=== PATIENT | female | born 2005 | race Caucasian/White ===

== ENCOUNTER 2025-04-08 22:11 | Emergency (ER) | payer OTHER ==
[2025-04-09 00:22] LABS: Absolute Lymphocytes (CBC) 1.1 K/uL (0.7-4.9); Hematocrit 37.2 % (36.0-45.0); Hemoglobin 13.0 g/dL (12.0-15.0); MCH 31.3 pg (27.0-35.0); MCHC 34.9 g/dL (32.0-36.0); MCV 89.9 fL (80-100); MPV 8.8 fL (7.6-11.3); Nucleated RBC Absolute Count 0.0 (0-0); Nucleated Red Blood Cells % 0.1 % (0-0); RBC Red Blood Cell Count 4.14 M/uL (3.86-4.86); White Blood Count 6.70 thou/uL (4.3-10.9)
[2025-04-09 00:30] LABS: Influenza A Ag Negative; Influenza B Ag Negative; SARS-CoV-2 Antigen Rapid Res Negative (Negative)
[2025-04-09 00:43] LABS: ALT/SGPT 17 U/L (13-56); Albumin 3.8 g/dL (3.4-5.0); Albumin/Globulin Ratio 0.9 (1.1-1.8); Alkaline Phosphatase 56 U/L (45-117); Anion Gap 9.4 mEq/L (5.0-15.0); BUN Blood Urea Nitrogen 12 mg/dL (7-18); Bilirubin Indirect, Calculated 0.4 mg/dL (0.2-0.8); Globulin 4.3 g/dL (2.3-3.5); Glucose Level 104 mg/dL (74-106); Magnesium 2.3 mg/dL (1.6-2.4); Potassium 3.4 mEq/L (3.5-5.1)
[2025-04-09 00:45] LABS: AST/SGOT < 10 U/L (15-37); Thyroid Stimulating Hormone 56.800 uIU/mL (0.358-3.740); Troponin High Sensitivity < 3.0 pg/mL (<58.9)
[2025-04-09 00:45] LABS: METHAMPHETAM NEGATIVE (NEGATIVE); THC Cannibis NEGATIVE (NEGATIVE)
[2025-04-09] MEDS ORDERED: NA CHLORIDE 0.9% 1,000 ML ONE (01:33)
--- NOTE | 2025-04-09 01:59 | EDPHYS ---
Physician Documentation [facility] Name: Darlene Light Age: 19 yrs Sex: Female : 2005 Arrival Date: 04/08/2025 Time: 22:11 Bed 8 Private MD: ED Physician Shadi Leone HPI: 04/08 23:40 This 19 yrs old Female presents to ER via Ambulatory with complaints of Weakness, kb Dizziness. 23:42 Patient is a 19-year-old female presents for body aches, chills, headache, weakness, kb dizziness and palpitations for 3 days. Mother states this has happened several times over the past few years. Has been seen by neurology, EEG completed and normal.. PATIENT FINANCIAL SERVICES SPECIALIST: 22:31 LMP 04/05/2025, unknown jb4 Historical: - Allergies: 22:31 No Known Allergies; jb4 - PMHx: 22:31 Hypothyroidism; jb4 - PSHx: 22:31 None; jb4 - Immunization history:: Adult Immunizations up to date. - Infectious Disease History:: Denies. - Social history:: Smoking status: Patient denies any tobacco usage or history of. ROS: 23:42 Constitutional: As per HPI kb Exam: 23:42 Constitutional: This is a well developed, well nourished patient who is awake, alert, kb and in no acute distress. Head/Face: Normocephalic, atraumatic. ENT: Moist Mucous membranes Cardiovascular: Regular rate Respiratory: Respirations even and unlabored. No increased work of breathing. Talking in full sentences Abdomen/GI: Soft, non-tender. No distention Skin: Warm, dry with normal turgor. Normal color. MS/ Extremity: Pulses equal, no cyanosis. Neurovascular intact. Full, normal range of motion. Neuro: Awake and alert, GCS 15, oriented to person, place, time, and situation. 04/09 00:41 ECG was reviewed by the Attending Physician. kb Vital Signs: 04/08 22:29 BP 129 / 83; Pulse 83; Resp 16; Temp 98.7(O); Pulse Ox 100% on R/A; jb4 04/09 00:14 BP 118 / 79; Pulse 77; Resp 18; Pulse Ox 99% on R/A; kd3 02:30 BP 132 / 88 Supine; Pulse 83; Resp 18; Pulse Ox 100% on R/A; kd3 02:40 BP 127 / 80 Sitting; Pulse 78; Resp 17; Pulse Ox 100% on R/A; kd3 02:40 BP 130 / 97 Standing; Pulse 81; Resp 16; Pulse Ox 100% ; kd3 MDM: 04/08 22:15 Medical Screening Exam initiated kb 23:42 Data reviewed: vital signs, nurses notes. Historians other than the Patient: Parent: krystin mother. 04/09 01:57 Differential Diagnosis dehydration, hypothyroidism, generalized weakness. Counseling: I krystin had a detailed discussion with the patient and/or guardian regarding the historical points, exam findings, and any diagnostic results supporting the discharge/admit diagnosis, lab results, radiology results, the need for outpatient follow up, a family practitioner, to return to the emergency department if symptoms worsen or persist or if there are any questions or concerns that arise at home. 04/08 22:34 Order name: Basic Metabolic Panel; Complete Time: 01:02 kb 04/08 22:34 Order name: CBC with Diff; Complete Time: 00:35 kb 04/08 22:34 Order name: Hepatic Function; Complete Time: 01:02 kb 04/08 22:34 Order name: Magnesium; Complete Time: 01:02 kb 04/08 22:34 Order name: Test, Urine; Complete Time: 01:02 kb 04/08 22:34 Order name: Troponin High Sensitivity; Complete Time: 01:02 kb 04/08 22:34 Order name: UDS; Complete Time: 01:02 kb 04/08 22:34 Order name: TSH; Complete Time: 01:02 kb 04/08 22:34 Order name: COVID-19 Ag + Flu A+B Ag; Complete Time: 00:35 kb 04/08 22:34 Order name: Group A Streptococcus Rapid; Complete Time: 00:35 kb 04/08 22:34 Order name: [place] Screen Profile; Complete Time: 01:05 kb 04/09 00:24 Order name: Throat Culture EDMS 04/09 00:48 Order name: T4 Free; Complete Time: 01:02 EDMS 04/08 22:34 Order name: Chest Single View XRAY kb 04/08 22:34 Order name: EKG; Complete Time: 22:34 kb 04/08 22:34 Order name: Cardiac monitoring; Complete Time: 00:12 kb 04/0834 Order name: EKG - Nurse/Tech; Complete Time: 00:12 kb 04/08 Order name: IV Saline Lock; Complete Time: 00:12 kb 04/08 Order name: Labs collected and sent; Complete Time: 00:12 kb 04/08 Order name: NPO; Complete Time: 00:11 kb 04/08 Order name: O2 Per Protocol; Complete Time: 00:11 kb 04/08 Order name: O2 Sat Monitoring; Complete Time: 00:11 kb 04/08 Order name: Orthostatics; Complete Time: 02:51 kb EC:41 Rate is 61 beats/min. Rhythm is regular. QRS [place] is Normal. NM interval is normal at kb 144 msec. QRS interval is normal at 82 msec. QT interval is normal at 400 msec. Administered Medications: 02:09 Drug: NS 0.9% IV 1000 ml IV at 1000 ml once; to be given as a bolus over 60 minutes kd3 Route: IV; Rate: 1000 ml; Site: left antecubital; 02:52 Follow up: IV Status: Completed infusion kd3 Disposition: 02:36 Co-signature as Attending Physician, Shadi Leone MD I agree with the assessment sp4 and plan of care. I reviewed the patient's care provided by Advanced Practice Provider \T\ agree w/ the diagnosis \T\ care plan. I personally saw the pt \T\ performed a substantive portion of the visit, incldng all aspects of the (History/Exam/Medical Decision Making). Disposition Summary: 04/09/25 01:59 Discharge Ordered Notes: Location: Home kb Condition: Stable kb Diagnosis - Hypothyroidism, unspecified kb - Weakness kb Followup: kb - With: Emergency Department - When: As needed - Reason: Worsening of condition Followup: kb - With: Private Physician - When: 2 - 3 days - Reason: Recheck today's complaints, Continuance of care, Re-evaluation by your physician Discharge Instructions: - Discharge Summary Sheet kb - Hypothyroidism kb - Weakness, [id number] kb Forms: - Medication Reconciliation Form kb - Antibiotic Education kb - Prescription Opioid Use kb - Patient Portal Instructions kb - Leadership Thank You Letter kb - Work release form jj7 Signatures: Dispatcher [employer] EDMS Elana Stewart, RESEARCH ASSOCIATE MOLECULAR BIOLOGY-C RESEARCH ASSOCIATE MOLECULAR BIOLOGY-Ckb Bk Rust, RN RN jb4 Mary Millan, RN RN kd3 Shadi Leone MD MD sp4 Corrections: (The following items were deleted from the chart) 04/08 22:34 22:34 BASIC METABOLIC PANEL+C.LAB.BRZ ordered. EDMS EDMS 22:34 22:34 CBC+H.LAB.BRZ ordered. EDMS EDMS 22:34 22:34 HEPATIC FUNCTION+C.LAB.BRZ ordered. EDMS EDMS 22:34 22:34 MAGNESIUM+C.LAB.BRZ ordered. EDMS EDMS 22:34 22:34 Test, Urine+UC.LAB.BRZ ordered. EDMS EDMS 22:34 22:34 Troponin High Sensitivity+C.LAB.BRZ ordered. EDMS EDMS 22:34 22:34 URINE DRUG SCREEN+UC.LAB.BRZ ordered. EDMS EDMS 22:34 22:34 THYROID STIMULAT HORMONE+C.LAB.BRZ ordered. EDMS EDMS 22:34 22:34 COVID-19 Ag + Flu A+B Ag+I.LAB.BRZ ordered. EDMS EDMS 22:34 22:34 Group A Streptococcus Rapid Sc+I.LAB.BRZ ordered. EDMS EDMS 22:34 22:34 MONO SCREEN PROFILE+I.LAB.BRZ ordered. EDMS EDMS
--- NOTE | 2025-04-09 01:59 | ER ---
Nurse's Notes [facility] Name: Darlene Light Age: 19 yrs Sex: Female : 2005 Arrival Date: 04/08/2025 Time: 22:11 Bed 8 Private MD: Diagnosis: Hypothyroidism, unspecified;Weakness Presentation: 04/08 22:29 Chief complaint: Chief complaint: Parent and/or Guardian states: Since Tuesday she had jb4 body aches, chills, headache, weakness and dizziness. Coronavirus screen: At this time, the client does not indicate any symptoms associated with coronavirus-19. Ebola Screen: No symptoms or risks identified at this time. Initial Sepsis Screen: Does the patient meet any 2 criteria? No. Patient's initial sepsis screen is negative. Does the patient have a suspected source of infection? No. Patient's initial sepsis screen is negative. Risk Assessment: Do you want to hurt yourself or someone else? Patient reports no desire to harm self or others. Onset of symptoms was April 08, 2025. Transition of care: patient was not received from another setting of care. 22:29 Method Of Arrival: Ambulatory jb4 22:29 Acuity: EMMANUEL 3 jb4 Triage Assessment: 04/09 00:13 General: Appears in no apparent distress. Behavior is calm, cooperative. Pain: Denies kd3 pain. DIRECT MARKETING SPECIALIST: 04/08 22:31 LMP 04/05/2025, unknown jb4 Historical: - Allergies: 22:31 No Known Allergies; jb4 - PMHx: 22:31 Hypothyroidism; jb4 - PSHx: 22:31 None; jb4 - Immunization history:: Adult Immunizations up to date. - Infectious Disease History:: Denies. - Social history:: Smoking status: Patient denies any tobacco usage or history of. Screenin/21 00:12 [facility] ED Fall Risk Assessment (Adult) History of falling in the last 3 months, kd3 including since admission No falls in past 3 months (0 pts) Confusion or Disorientation No (0 pts) Intoxicated or Sedated No (0 pts) Impaired Gait No (0 pts) Mobility Assist Device Used No (0 pt) Altered Elimination No (0 pt) Score/Fall Risk Level 0 - 2 = Low Risk Maintained a safe environment. Abuse screen: Denies threats or abuse. Denies injuries from another. Nutritional screening: No deficits noted. Tuberculosis screening: No symptoms or risk factors identified. Assessment: 00:13 General: Appears in no apparent distress. Behavior is calm, cooperative. Neuro: Level kd3 of Consciousness is awake, alert, obeys commands, Oriented to person, place, time, situation. Cardiovascular: Capillary refill < 3 seconds Patient's skin is warm and dry. Respiratory: Airway is patent Trachea midline Respiratory effort is even, unlabored, Respiratory pattern is regular, symmetrical. GI: No signs and/or symptoms were reported involving the gastrointestinal system. : No signs and/or symptoms were reported regarding the genitourinary system. 01:00 Reassessment: Patient and/or family updated on plan of care and expected duration. Pain kd3 level reassessed. Patient is alert, oriented x 3, equal unlabored respirations, skin warm/dry/pink. 02:00 Reassessment: Patient and/or family updated on plan of care and expected duration. Pain kd3 level reassessed. Patient is alert, oriented x 3, equal unlabored respirations, skin warm/dry/pink. 02:53 General: Appears in no apparent distress. Behavior is calm, cooperative. Neuro: Level kd3 of Consciousness is awake, alert, obeys commands, Oriented to person, place, time, situation. Cardiovascular: Capillary refill < 3 seconds Patient's skin is warm and dry. Respiratory: Airway is patent Trachea midline Respiratory effort is even, unlabored, Respiratory pattern is regular, symmetrical. Vital Signs: 04/08 22:29 BP 129 / 83; Pulse 83; Resp 16; Temp 98.7(O); Pulse Ox 100% on R/A; jb4 04/09 00:14 BP 118 / 79; Pulse 77; Resp 18; Pulse Ox 99% on R/A; kd3 02:30 BP 132 / 88 Supine; Pulse 83; Resp 18; Pulse Ox 100% on R/A; kd3 02:40 BP 127 / 80 Sitting; Pulse 78; Resp 17; Pulse Ox 100% on R/A; kd3 02:40 BP 130 / 97 Standing; Pulse 81; Resp 16; Pulse Ox 100% ; kd3 ED Course: 04/08 22:13 Patient arrived in ED. mr 22:15 Elana Stewart FNP-C is PHCP. kb 22:15 Shadi Leone MD is Attending Physician. kb 22:31 Triage completed. jb4 22:31 Arm band placed on right wrist. jb4 23:45 Mary Millan, RN is Primary Nurse. kd3 04/09 00:00 Inserted saline lock: 20 gauge in left antecubital area, using aseptic technique. Blood kd3 collected. Flushed with 10 mL NS. 00:00 No provider procedures requiring assistance completed. kd3 00:11 Troponin High Sensitivity Sent. kd3 00:11 Test, Urine Sent. kd3 00:11 Magnesium Sent. kd3 00:11 Hepatic Function Sent. kd3 00:11 CBC with Diff Sent. kd3 00:11 Basic Metabolic Panel Sent. kd3 00:12 UDS Sent. kd3 00:12 TSH Sent. kd3 00:12 Group A Streptococcus Rapid Sent. kd3 00:12 COVID-19 Ag + Flu A+B Ag Sent. kd3 00:12 [place] Screen Profile Sent. kd3 00:13 Patient has correct armband on for positive identification. Provided Education on: kd3 blood work and EKG . 00:42 Chest Single View XRAY In Process Unspecified. EDMS 02:54 IV discontinued, intact, bleeding controlled, No redness/swelling at site. Pressure kd3 dressing applied. Administered Medications: 02:09 Drug: NS 0.9% IV 1000 ml IV at 1000 ml once; to be given as a bolus over 60 minutes kd3 Route: IV; Rate: 1000 ml; Site: left antecubital; 02:52 Follow up: IV Status: Completed infusion kd3 Medication: 00:13 VIS not applicable for this client. kd3 Outcome: 01:59 Discharge ordered by . kb 02:53 Discharged to home ambulatory, with family, kd3 02:53 Condition: stable 02:53 Discharge instructions given to patient, family, Instructed on discharge instructions, follow up and referral plans. Demonstrated understanding of instructions, follow-up care, 03:01 Patient left the ED. kd3 Signatures: Dispatcher [employer] EDMS Elana Stewart, WINDOW GLASS CUTTER OFF-C WINDOW GLASS CUTTER OFF-Ckb Eve Soliz, Reg Reg Bk Mckenzie, RN RN jb4 Mary Millan, RN RN kd3
--- NOTE | 2025-04-09 03:53 | RAD REPORT ---
EXAM: XR Chest, 1 View FACILITY: [facility] CLINICAL HISTORY: 19 years, Female; PALPITATIONS TECHNIQUE: Frontal view of the chest. COMPARISON: No relevant prior studies available. FINDINGS: Lungs: Unremarkable. No consolidation. Pleural space: Unremarkable. No pneumothorax. Heart: Unremarkable. No cardiomegaly. Mediastinum: Unremarkable. Normal mediastinal contour. Bones/joints: Unremarkable. No acute fracture. IMPRESSION: No acute cardiopulmonary process. Electronically signed by: Eliana Sanon MD 04/09/2025 01:44 AM CDT RP H Due to temporary technical issues with the PACS/[employer] reporting system, reports are being carly d by the in-house radiologist without review as a courtesy to ensure prompt reporting the interpreting radiologist is fully responsible for the content of the report. Transcribed Date/Time: 04/09/2025 3:53 AM
[2025-04-09 09:05] VITALS: TEMP 98.7
[2025-04-09 09:16] VITALS: O2SAT 100
[2025-04-09 09:43] VITALS: BP 130/97
== END 2025-04-09 03:01 | disposition home or self-care (01) ==
LOC: ER 22:11
DX: E03.9 Hypothyroidism, unspecified (principal)
CPT/HCPCS: 93005; 87070; 85025; 80048; 36415; 83735; 86308; 81025; 80076; 84443; 84484; 84439; 80307; 71045; 96360; 99284; 87428; J7030